=== PATIENT | male | born 1950 | race Two or more races ===

== ENCOUNTER 2018-04-10 16:15 | Inpatient (IN) | payer OTHER, MEDICAID ==
[~2018-04-10] VITALS: Ht 172.7 cm; Wt 71.7 kg
--- NOTE | 2018-04-10 16:45 | NUR ---
GPS/RN PATIENT ADMITTED ON A 5150 HOLD FOR DTS UNDER THE CARE OF DR MUÑIZ AND DR MAX. BOTH DR'S AWARE OF NEW ADMISSION , MEDS IN SYSTEM. PER HOLD PATIENT IS FEELING OVERWHELMED DUE TO MAJOR STRESSORS, INCLUDING-FACING [facility], PHYSICAL ILLNESS,AND DROP IN INCOME LEVEL. PATIENT WAS ALSO REPORTING SUICIDAL THOUGHTS AND HAS A HISTORY OF DEPRESSION. UPON FACE TO FACE ASSESSMENT, PATIENT IS ALERT X 4, STABLE CONDITION, VERBALLY RESPONSIVE, ANXIOUS, WITH BLUNTED AFFECT. PATIENT DENIES ANY SI AT THIS TIME, BUT STATES THAT HE IS FEELING DEPRESSED. AT THIS TIME PATIENT IS CALM AND COOPERATIVE, WILL CONTINUE Q 15 MIN FOR SAFETY AND BEHAVIOR. Addendum: 04/10/18 at 1850 by EUNICE MIRANDA RN BELONGINGS, VALUABLES COLLECTED, CONTRABAND PUT IN LOCKER 213 A. WILL ENDORSE COMPLETION OF ADMISSION TO ONCOMING SHIFT.
[2018-04-10] MEDS ORDERED: LORAZEPAM 0.5 MG TABLET PO PRN (17:00)
[2018-04-10] MEDS ORDERED: ACETAMINOPHEN 325 MG TABLET PO PRN (17:00)
[2018-04-10] MEDS ORDERED: MAGNESIUM HYDROXIDE 30 ML UDC PO PRN (17:00)
[2018-04-10] MEDS ORDERED: MAG HYDROX/AL HYDROX/SIMETH 30 ML UDC PO PRN (17:00)
[2018-04-10 17:04] VITALS: BP 127/82
[2018-04-10] MEDS ORDERED: TEMA30CA PO (17:38)
[2018-04-10] MEDS ORDERED: MELO-107 PO (17:38)
[2018-04-10] MEDS ORDERED: RASA1TAB4 PO (17:38)
[2018-04-10] MEDS ORDERED: ESCI10TA PO (17:38)
[2018-04-10] MEDS ORDERED: CARB1TAB24 PO (17:38)
[2018-04-10] MEDS ORDERED: FINA5TAB11 PO (17:38)
[2018-04-10] MEDS ORDERED: TEST100V5 IM (17:38)
[2018-04-10] MEDS ORDERED: PRAM0.129 PO (17:38)
[2018-04-10] MEDS ORDERED: POLY15DR40 EACHEYE (18:18)
[2018-04-10] MEDS: FINASTERIDE (5 MG) 5 MG TABLET PO SCH (18:57)
[2018-04-10] MEDS ORDERED: POLYVINYL ALCOHOL 15 ML BOTTLE OP PRN (19:00)
[2018-04-10] MEDS: ESCITALOPRAM OXALATE (10 MG) 10 MG TABLET PO SCH (19:01)
[2018-04-10 20:26] VITALS: BP 120/71
[2018-04-10] MEDS: PRAMIPEXOLE DI-HCL 0.25 MG TABLET PO SCH (21:29)
[2018-04-10] MEDS: TEMAZEPAM 7.5 MG CAPSULE PO PRN (21:29)
[2018-04-10] MEDS: CARBIDOPA/LEVODOPA 25/250 MG 1 UDTAB PO SCH (21:29)
[2018-04-11 07:20] LABS: ALBUMIN 3.9 g/dL (3.4-5.0); BILIRUBIN,TOTAL 1.2 mg/dL (0.2-1.0); CALCIUM, SERUM 8.4 mg/dL (8.5-10.1); CREATININE 1.1 mg/dL (0.6-1.3); POTASSIUM 3.8 mmol/L (3.5-5.1); TOTAL PROTEIN, SERUM 7.7 g/dL (6.4-8.2)
[2018-04-11 08:00] VITALS: BP 121/74
[2018-04-11] MEDS: MELOXICAM 7.5 MG TABLET PO SCH (08:59)
[2018-04-11] MEDS: CARBIDOPA/LEVODOPA 25/250 MG 1 UDTAB PO SCH ×4 (09:00→21:43)
[2018-04-11] MEDS: ESCITALOPRAM OXALATE (10 MG) 10 MG TABLET PO SCH (09:00)
[2018-04-11] MEDS ORDERED: VENLAFAXINE XR 75 MG CAP.SR.24H PO SCH (09:00)
[2018-04-11] MEDS ORDERED: Medication Not On Formulary EA (Rasagiline Mesylate 1 MG) PO SCH (09:00)
[2018-04-11] MEDS: FINASTERIDE (5 MG) 5 MG TABLET PO SCH (09:00)
[2018-04-11] MEDS: PRAMIPEXOLE DI-HCL 0.25 MG TABLET PO SCH ×4 (09:01→21:43)
--- NOTE | 2018-04-11 11:30 | NUR ---
KIRA faxed the pt's face sheet to his insurance per care team coordinator scheduler's email at ([phone]).
--- NOTE | 2018-04-11 11:33 | NUR ---
KIRA spoke to Girma ([phone]) from [facility] and discussed faxing a clinical review by the end of the day to ensure the most recent information on the patient.
--- NOTE | 2018-04-11 12:51 | NUR ---
Initial Discharge Plan: Per pt, he will be discharged home to [facility] [address] [place] [address] ([phone]) where he will live alone but near his family. KIRA will work with the pt and the MD regarding appropriate discharge plans. SW will form a safe and proper discharge.
[2018-04-11 15:52] VITALS: BP 98/66
--- NOTE | 2018-04-11 16:23 | NUR ---
KIRA spoke to Girma [phone]) from [facility] [employer] and discussed sending a clinical on Saturday.
[2018-04-11 19:53] VITALS: BP 101/68
[2018-04-11] MEDS: TEMAZEPAM 7.5 MG CAPSULE PO PRN (21:43)
[2018-04-12 08:00] VITALS: BP 111/73
[2018-04-12] MEDS: ESCITALOPRAM OXALATE (10 MG) 10 MG TABLET PO SCH (08:37)
[2018-04-12] MEDS: CARBIDOPA/LEVODOPA 25/250 MG 1 UDTAB PO SCH ×4 (08:37→22:06)
[2018-04-12] MEDS: VENLAFAXINE XR 75 MG CAP.SR.24H PO SCH (08:37)
[2018-04-12] MEDS: MELOXICAM 7.5 MG TABLET PO SCH (08:38)
[2018-04-12] MEDS: PRAMIPEXOLE DI-HCL 0.25 MG TABLET PO SCH ×4 (08:38→22:06)
[2018-04-12] MEDS: FINASTERIDE (5 MG) 5 MG TABLET PO SCH (08:38)
[2018-04-12 16:10] VITALS: BP 115/74
[2018-04-12 20:00] VITALS: BP 112/70
[2018-04-12] MEDS: TEMAZEPAM 7.5 MG CAPSULE PO PRN (22:06)
[2018-04-13 08:00] VITALS: BP 120/67
[2018-04-13] MEDS: CARBIDOPA/LEVODOPA 25/250 MG 1 UDTAB PO SCH ×4 (08:47→21:21)
[2018-04-13] MEDS: VENLAFAXINE XR 75 MG CAP.SR.24H PO SCH (08:47)
[2018-04-13] MEDS: FINASTERIDE (5 MG) 5 MG TABLET PO SCH (08:48)
[2018-04-13] MEDS: MELOXICAM 7.5 MG TABLET PO SCH (08:48)
[2018-04-13] MEDS: PRAMIPEXOLE DI-HCL 0.25 MG TABLET PO SCH ×4 (08:48→21:21)
[2018-04-13] MEDS: ESCITALOPRAM OXALATE (10 MG) 10 MG TABLET PO SCH (08:48)
[2018-04-13 16:01] VITALS: BP 127/86
[2018-04-13 19:55] VITALS: BP 117/74
[2018-04-13] MEDS: TEMAZEPAM 7.5 MG CAPSULE PO PRN (22:31)
[2018-04-14 08:00] VITALS: BP 118/76
[2018-04-14] MEDS: VENLAFAXINE XR 75 MG CAP.SR.24H PO SCH (08:45)
[2018-04-14] MEDS: MELOXICAM 7.5 MG TABLET PO SCH (08:45)
[2018-04-14] MEDS: ESCITALOPRAM OXALATE (10 MG) 10 MG TABLET PO SCH (08:45)
[2018-04-14] MEDS: CARBIDOPA/LEVODOPA 25/250 MG 1 UDTAB PO SCH ×3 (08:45→16:33)
[2018-04-14] MEDS: PRAMIPEXOLE DI-HCL 0.25 MG TABLET PO SCH ×3 (08:46→16:33)
[2018-04-14] MEDS: FINASTERIDE (5 MG) 5 MG TABLET PO SCH (08:46)
--- NOTE | 2018-04-14 14:33 | NUR ---
KIRA faxed a clinical review to Myah Hardy (phone number: [phone] and fax number: [phone]).
--- NOTE | 2018-04-14 15:37 | NUR ---
KIRA spoke to Myah Hardy ([phone]), automobile insurance claim examiner, and she stated that the pt needs to be discharged today due to a lack of need.
--- NOTE | 2018-04-14 15:38 | NUR ---
KIRA called the pt's brother, Dick Marie ([phone]), and discussed the pt being discharged and picked up at 7:30pm.
--- NOTE | 2018-04-14 15:38 | NUR ---
SW spoke to Dr. Hoffman who approved the pt to be discharged home with the brother.
[2018-04-14 16:00] VITALS: BP 121/77
--- NOTE | 2018-04-14 16:20 | NUR ---
Discharge Note: Pt discharged and went back home to [address] [place], [place] [id number] ([phone]) with his brother, Dick Marie ([phone]) at 7:30pm. Pt denied suicidal/homicidal ideations and denied visual/auditory hallucinations. Pt's mood and affect was calm and cooperative at discharge. He was agreeable to this placement and pt's brother also agreed to this discharge plan. Pt was given substance abuse referrals such as [facility] on [address] [place] [address] , [facility] on [address], [place] [id number] and [facility] on [address] [place] [address] . Pt will be under the care of his outside psychiatrist Dr. Castellano located at [address] [place] [address] [address] medical doctor Dr[address] Andrew Mcclelland located at [address] [facility] [address] [facility], [address], [place] [address].
--- NOTE | 2018-04-14 18:39 | NUR ---
GPS/RN PATIENT CLEARED FOR DISCHARGE HOME BY DR MUÑIZ AND DR MAX. MEDICATIONS RECONCILED BY BOTH DR'S,EXIT CARE, MEDICATIONS AND AFTERCARE PLAN EXPLAINED TO PATIENT AND BROTHER, VERBALIZED UNDERSTANDING, PSYCHIATRIC PRESCRIPTIONS INCLUDED IN PACKET, FAXED TO (PREFERRED) [facility]. PER PATIENT, NO MEDICAL MEDS PRESCRIPTIONS NEEDED. STATED THAT HE HAS THEM AT HOME. BELONGINGS AND VALUABLES RETURNED TO PATIENT, PATIENT SIGNED BELONGINGS SHEET. PATIENT DENIES SI/HI/AH UPON DISCHARGE, PSYCHIATRIC TREATMENT PLANS MET. LEFT UNIT CALM, COOPERATIVE, NO DISTRESS NOTED, WITH VETERINARY MEDICINE SCIENTIST AND PATIENTS BROTHER AT SIDE.
--- NOTE | 2018-07-18 15:29 | NUR ---
Substance Abuse Follow Up: SW called the pt and was able to discuss his current state with substance use on 04/29/18.
== END 2018-04-14 18:30 | disposition home or self-care (01) | DRG 885 ==
LOC: GPS 16:15
PROVIDERS: ADMIT Psychiatry & Neurology Psychosomatic Medicine; ATTEND Internal Medicine
DX: F33.2 Major depressive disorder, recurrent severe without psychotic features (principal); R45.851 Suicidal ideations; G20 Parkinson's disease; R74.0 Nonspecific elevation of levels of transaminase and lactic acid dehydrogenase [LDH]; R79.89 Other specified abnormal findings of blood chemistry
CPT/HCPCS: 36415; 80053-TC; 80061-TC; 87081-TC